=== PATIENT | male | born 1960 | race Hispanic/Latino ===

== ENCOUNTER → 2022-10-31 | Outpatient (CLI) | payer MEDICARE ==
[2022-10-31 10:54] LABS: CREATININE 0.9 mg/dL (0.5-1.5); POTASSIUM 4.4 mmol/L (3.5-5.1)
== END | disposition home or self-care (01) ==
LOC: LAB 09:49
PROVIDERS: ATTEND Internal Medicine Cardiovascular Disease
DX: I50.23 Acute on chronic systolic (congestive) heart failure (principal); I25.5 Ischemic cardiomyopathy
CPT/HCPCS: 36415; 80048; 83880

== ENCOUNTER 2024-09-28 08:06 | Day surgery (SDC) | payer OTHER, MEDICARE ==
[~2024-09-28] VITALS: Ht 154.9 cm; Wt 65.8 kg
[2024-09-28] VITALS (10 sets, daily range): BP systolic 94–128; BP diastolic 57–84; PULSE 52–75; RESP 12–16; TEMP 97–97.2
[2024-09-28] MEDS: 0.9%NACL 1000ML 1,000 ML IV ONE (11:02)
[2024-09-28] MEDS ORDERED: DAPA10TA PO (11:51)
[2024-09-28] MEDS ORDERED: SPIR25TA6 PO (11:51)
[2024-09-28] MEDS ORDERED: ATOR40TA69 PO (11:51)
[2024-09-28] MEDS ORDERED: FURO20TA4 PO (11:51)
[2024-09-28] MEDS ORDERED: LISI2.5T13 PO (11:51)
[2024-09-28] MEDS ORDERED: ISOS10TA8 PO (11:51)
[2024-09-28] MEDS ORDERED: proPOFol 10 MG/ML 20ML VIAL IV ONE (12:05)
== END 2024-09-28 14:10 | disposition home or self-care (01) ==
LOC: DAH 08:06
PROVIDERS: ATTEND Internal Medicine Gastroenterology
DX: R19.5 Other fecal abnormalities (principal); D12.3 Benign neoplasm of transverse colon; D12.5 Benign neoplasm of sigmoid colon; D12.8 Benign neoplasm of rectum; K57.30 Diverticulosis of large intestine without perforation or abscess without bleeding; K29.70 Gastritis, unspecified, without bleeding; B96.81 Helicobacter pylori [H. pylori] as the cause of diseases classified elsewhere; E78.5 Hyperlipidemia, unspecified; K74.60 Unspecified cirrhosis of liver; I50.20 Unspecified systolic (congestive) heart failure; E11.9 Type 2 diabetes mellitus without complications; K76.6 Portal hypertension; K31.89 Other diseases of stomach and duodenum; Z79.82 Long term (current) use of aspirin; Z79.899 Other long term (current) drug therapy
CPT/HCPCS: 45381; 45380; 45385; 43239; J7030 ×2; J2704; A4649; A4615; A4215 ×2; A4223; A4222; A4221; A4663; A4606; J3490

== ENCOUNTER → 2025-11-04 | Outpatient (CLI) | payer OTHER, MEDICARE ==
[2025-11-04 08:56] LABS: INR 1.22 (0.85-1.15)
--- NOTE | 2025-11-04 10:00 | NUR ---
U/S GD PARACENTESIS PROCEDURE PERFORMED BY DR PADILLA. PUNCTURE SITE LLQ AND PATIENT TOLERATED PROCEDURE WELL. TOTAL REMOVED 3.7 LITERS OF YELLOW CLOUDY ASCITES FLUID. SPECIMEN SENT TO LAB. END OF PROCEDURE AT 0940. CATHETER REMOVED AND DRESSING APPLIED. NO BLEEDING NOTED. DISCHARGE INSTRUCTIONS GIVEN TO PATIENT AND VERBALIZED UNDERSTANDING. DISCHARGED VIA AMBULATORY. AAO X3 WITH NO C/O PAIN.
[2025-11-04 11:53] LABS: ALBUMIN,BODY FLUID 2.3 g/dL; TOTAL PROTEIN,BODY FLUID 4.9 g/dL
--- NOTE | 2025-11-04 13:02 | HMCIMG ---
US ABDOMINAL PARACENTESIS IR REASON: ASCITES TECHNIQUE: Paracentesis was performed with ultrasound guidance. The puncture site was selected in the Right lower quadrant and overlying skin prepped and draped in a sterile fashion. 1% Xylocaine infiltration was performed. Catheter was placed in the fluid using trocar technique. 3.7 L were removed. Fluid sample was submitted for laboratory evaluation. The patient showed no evidence of complication during the procedure. Patient tolerated procedure well IMPRESSION: 1. Ultrasound-guided paracentesis.
[2025-11-04 13:42] LABS: BODY FLUID RBC 280 /cu. mm.; BODY FLUID WBC 289 /cu. mm.
[2025-11-04 14:00] LABS: APPEARANCE BODY FLUID SLIGHTLY CLOUDY (CLEAR); COLOR,BODY FLUID YELLOW (LT YELLOW); SPECIMENTYPE,BODY FLUID ASCITES; TOTAL VOLUME,BODY FLUID 3700 mL
[2025-11-04 14:45] LABS: BF LYMPHOCYTE 76 %; BF MACROPHAGE 4; BF MONOCYTE 18 %; BF NEUTROPHIL 2.0 %; BF TOTAL CELLS COUNTED 100
== END ==
LOC: RAH 08:04
PROVIDERS: ATTEND Internal Medicine Gastroenterology
DX: R18.8 Other ascites (principal); K74.60 Unspecified cirrhosis of liver; I50.20 Unspecified systolic (congestive) heart failure; E11.9 Type 2 diabetes mellitus without complications; E78.5 Hyperlipidemia, unspecified
CPT/HCPCS: 49083; 84157; 89051; 85610; 85730; 87071; 87205; 82042; 36415; 88108; 88305; C1729